=== PATIENT | female | born 1935 | race Caucasian/White ===

== ENCOUNTER → 2022-08-26 | Day surgery (SDC) | payer MEDICARE, MEDICAID ==
[~2022-08-26] MED LIST: Ketamine 200 MG/20 ML MDV ONE; Lidocaine 2% 5 ML SDV ONE; Propofol 200 MG/20 ML SDV ONE
[2022-08-26] MEDS: Lactated Ringers 1,000 ML IV SCH (07:35)
== END ==
LOC: CC.SDS 07:26
PROVIDERS: ATTEND Family Medicine
DX: K29.50 Unspecified chronic gastritis without bleeding (principal); K21.9 Gastro-esophageal reflux disease without esophagitis; D64.9 Anemia, unspecified; Z79.899 Other long term (current) drug therapy
CPT/HCPCS: 00731; 43239; 87081; 88305; 88342; J2704; J3490; J7120